=== PATIENT | female | born 1945 | race Caucasian/White ===

== ENCOUNTER → 2016-07-29 | Outpatient (CLI) | payer OTHER, MEDICARE | LOC: BHFA 13:00 | PROVIDERS: ATTEND Internal Medicine Cardiovascular Disease | DX: I48.91 Unspecified atrial fibrillation (principal) ==

== ENCOUNTER → 2016-07-31 | Outpatient (CLI) | payer OTHER, MEDICARE | LOC: BHCLAF 08:30 | PROVIDERS: ATTEND Internal Medicine | DX: I42.9 Cardiomyopathy, unspecified (principal); I48.91 Unspecified atrial fibrillation | CPT/HCPCS: 93306-PO ==

== ENCOUNTER → 2016-08-24 | Outpatient (CLI) | payer OTHER, MEDICARE | LOC: CIMAGING 15:21 | PROVIDERS: ATTEND Family Medicine | DX: M53.3 Sacrococcygeal disorders, not elsewhere classified (principal); Z98.890 Other specified postprocedural states | CPT/HCPCS: 72190-PO; 72202-PO ==

== ENCOUNTER → 2017-01-18 | Outpatient (CLI) | payer OTHER, MEDICARE | LOC: CIMAGING 08:41 | PROVIDERS: ATTEND Family Medicine | DX: Z12.31 Encounter for screening mammogram for malignant neoplasm of breast (principal) | CPT/HCPCS: G0202 ==

== ENCOUNTER → 2017-08-12 | Outpatient (CLI) | payer OTHER, MEDICARE | LOC: BHFA 10:00 | PROVIDERS: ATTEND Internal Medicine Cardiovascular Disease | DX: I48.0 Paroxysmal atrial fibrillation (principal); R00.2 Palpitations ==

== ENCOUNTER → 2017-11-02 | Outpatient (CLI) | payer OTHER, MEDICARE | LOC: BRMIMAGING 09:08 | PROVIDERS: ATTEND Family Medicine | DX: R92.8 Other abnormal and inconclusive findings on diagnostic imaging of breast (principal) | CPT/HCPCS: 76641-PO ==

== ENCOUNTER 2018-03-22 09:25 | Day surgery (SDC) | payer OTHER, MEDICARE ==
[2018-03-22] MEDS ORDERED: MIDAZOLAM 2 MG/2 ML VIAL IVP ONE (09:28)
[2018-03-22] MEDS ORDERED: fentaNYL 100 MCG/2 ML INJ IVP ONE (09:28)
[2018-03-22] MEDS ORDERED: NS 500 ML IV ONE (09:28)
--- NOTE | 2018-03-22 09:56 | PDCONSULT ---
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 She has been on uninterrupted anticoagulation with coumadin for "years". ECG was obtained today, and patient was in normal sinus rhythm. An extra dose of Propafenone was recommend for last night, which was done, and the patient awakened this morning feeling "back to normal rhythm". No indication for further testing at present Would have the patient follow up with cardiology in one week with ECG at that time
--- NOTE | 2018-03-22 16:00 | CPEKG ---
Test Reason : OPEN Blood Pressure : / mmHG Vent. Rate : 068 BPM Atrial Rate : 068 BPM P-R Int : 195 ms QRS Dur : 124 ms QT Int : 413 ms P-R-T Axes : 084 077 068 degrees QTc Int : 440 ms Sinus rhythm Nonspecific intraventricular conduction delay Confirmed by Jesus Manuel Jauregui [id number] on 03/22/2018 4:00:15 PM Referred By: Jesus Manuel Jauregui Confirmed By:Jesus Manuel Jauregui
== END 2018-03-22 10:00 | disposition home or self-care (01) ==
LOC: FCATH 09:25
PROVIDERS: ATTEND Internal Medicine Cardiovascular Disease
DX: I48.91 Unspecified atrial fibrillation (principal); Z79.01 Long term (current) use of anticoagulants; Z53.09 Procedure and treatment not carried out because of other contraindication